=== PATIENT | female | born 2000 ===

== ENCOUNTER 2024-10-22 08:59 | Outpatient (AMB) | payer MEDICAID, SELFPAY ==
[2024-10-22 08:57] VITALS: BP 106/70; PULSE 80; RESP 18; TEMP 36.6; O2SAT 99
--- NOTE | 2024-10-22 08:57 | AMB.OBINITIA ---
Vital Signs 10/22/24 08:57 Height 1.57 m Height Method Stated Weight 74.503 kg Weight Measurement Method Standing Scale BMI 30.0 BP 106/70 Blood Pressure Source Automatic Cuff Blood Pressure Location Left Upper Arm Position Sitting Respiration 18 Pulse 80 Pulse Source Monitor Temp 97.8 F Temp Source Oral Pulse Oximetry (%) 99 Oxygen Delivery Method Room Air Allergies/Home Meds Allergies & Medications Allergies No Known Allergies Allergy (Verified 10/22/24 08:58) Medication Reconciliation ferrous sulfate 325 mg (65 mg iron) tablet 325 mg PO BID 10/16/23 [History Confirmed 10/22/24] folic acid 800 mcg tablet 1 mg PO DAILY 10/16/23 [History Confirmed 10/22/24] vit no.95-ferrous fumarate 28 mg-folic acid 800 mcg tablet () 1 tab PO DAILY 10/16/23 [History Confirmed 10/22/24] acetaminophen 500 mg capsule 500 mg PO QID PRN fever or pain #30 caps 10/20/23 [Rx Confirmed 10/22/24] ibuprofen 800 mg tablet 800 mg PO Q8H PRN pain #30 tabs 10/20/23 [Rx Confirmed 10/22/24] Intake Visit Data Collection New Patient or Established: New Patient not seen in past 3 years at [facility] (considered New) Seen by Clinical Staff ONLY (RN/MA): No Blend Technician Required: No Do You Feel Safe at Home: Yes Authorities Contacted: N/A PCP or OBGYN visit in last 3 months: Yes Hx Now: Yes Are you currently on any form of Control: No Last menstrual period: 04/10/24 Pain Present Currently: No Pain Scale Used: Escobar-Alcantara/Numerical Pain scale:: 0 Smoking Status Smoking Status: Never smoker Questionnaires Covid-19 Vaccine Questionnaire Has patient been vacinated for Covid-19 Have you been vacinated for Covid-19: Yes PHQ-9 PHQ-2 Over the last 2 weeks, how often have you been bothered by any of the following problems? 1. Little interest or pleasure in doing things: not at all 2. Feeling down, depressed, or hopeless: not at all Total score: 0 PHQ-9 3. Trouble falling or staying asleep, or sleeping too much: Not at all 4. Feeling tired or having little energy: Not at all 5. Poor appetite or overeating: Not at all 6. Feeling bad about yourself - or that you are a failure or have let yourself or your family down: Not at all 7. Trouble concentrating on things, such as reading the newspaper or watching television: Not at all 8. Moving or speaking so slowly that other people could have noticed? - Or the opposite - being so fidgety or restless that you have been moving around a lot more than usual: not at all 9. Thoughts that you would be better off or of hurting yourself in some way: Not at all Total score: 0 If you checked off any problems, how difficult have these problems made it for you to do your work, take care of things at home, or get along with other people?: not difficult at all Source: Developed by Drs. Von Swain, Johana Edmond, Darshan Garcia and colleagues, with an educational kota from [email or web address]. Depression screen completed yes Social History Living Situation History Marital Status: Lives With: Family Housing: Apartment Tobacco History Smoking Status: Never smoker Second Hand Smoke Exposure: No Alcohol History Alcohol Intake: Never Domestic Abuse History Do You Feel Safe at Home: Yes Past Medical History Past Medical History Have you ever been diagnosed with any of the following: Neurological Problems Seizures: No Cardiology Problems Congestive Heart Failure: No Respiratory Problems Chronic Obstructive Pulmonary Disease (COPD): No Stomache/Intestinal Problems Hepatitis: No Genital/Urinary Problems Renal Disease: No Reproductive Problems Endometriosis: No Genital Herpes: No Gonorrhea: No Pelvic Inflammatory Disease: No Previous Pregnancies: No Syphilis: No Uterine Prolapse: No Endocrine Problems Diabetes Mellitus Type 1: No Diabetes Mellitus Type 2: No Blood Problems Anemia: No Leukemia: No Hemophilia: No Thalassemia: No Sickle Cell Disease: No Clotting Problems: No Other Problems Hospitalization: Yes (breast reduction sx, pilonidal cyst sx.) Down Syndrome: No Developmental Delay: No Shingles: No Falls: No Blood Transfusions: No Blood Transfusion Reaction: No Anesthesia Reactions: No Organ Transplant: No Chemotherapy: No Radiation Therapy: No Hyperbaric Therapy: No MRSA: No VRSA: No Vancomycin-Resistant Enterococci: No Human Immunodeficiency Virus (HIV): No Chicken Pox: No Measles: No Mumps: No Rubella (Andorran Measles): No Pertussis: No Clostridium Difficile: No Cancer: No OB Initial Visit Menstrual History Menstrual reliability: definite Flow: normal Menstrual regularity: regular Monthly: Yes Age at menarche: 12 On control pills at conception: No Infection History & Risk Evaluation History of STDs: none HIV risk evaluation: low risk Hepatitis B risk evaluation: low risk Patient or partner has history of Genital Herpes: No Varicella/chicken pox status: immunized Genetic Screening & History Genetic Screening/Teratology Counseling - Includes patient, baby's father, or anyone in either family with: 1. Patient's age 35 years or older as of estimated date of delivery: No 2. Thalassemia (Occitan, Slovak, Mediterranean, or Background); MCV less than 80: No 3. Neural Tube Defect (Meningomyelocele, Spina Bifida, or Anencephaly): No 4. Congenital Heart Defect: No 5. Down Syndrome: No 6. Rolo-Sachs (Ashkenazi Hindu, Cajun, Rwandan Weston): No 7. Lo Disease (Ashkenazi Hindu): No 8. Familial Dysautonomia (Ashkenazi Hindu): No 9. Sickle Cell Disease or Trait (): No 10. Hemophilia or other blood disorders: No 11. Muscular Dystrophy: No 12. Cystic Fibrosis: No 13. Amalia's Chorea: No 14. Mental Retardation/Autism: No 15. Other inherited genetic or chromosomal disorder: No 16. Maternal Metabolic Disorder (EG,TYPE 1 Diabetes, PKU): No 17. Patient or baby's father had a child with defects not listed above: No 18. Recurrent loss or a stillbirth: No 19. Medications (including supplements, vitamins, herbs or otc drugs)/illicit/recreational drugs/alcohol since last menstrual period: No 20. Any other: No Comments/Counseling: PATIENT STATES HISTORY OF HEART MURMURS IN FAMILY Infection History 1. Live with someone with TB or exposed to TB: No 2. Rash or viral illness since last menstrual period: No 3. Hepatitis B,C: No Other (see comments) Source: [employer] Office Procedures OB Clinic LOC & Office Proc's Nursing/Assessment Patient Status: Initial/New Patient OB Clinic Nursing Assessment: BP Monitoring, Medication Reconciliation, Update PMH in EMR and Vital Signs OB Clinic Coordination of Care: Consent,records obtained, informed consent, Education Simp Pt/Fam, Lab and Imaging orders and Staff clarify orders Special Needs: Heart tones New Patient Charge New Patient Point Assignment: [id number] New Patient Point Charge: CHIEF RADIOLOGY Level 4 ([id number])
--- NOTE | 2024-10-22 09:30 | AMB.OBINITIA ---
Vital Signs 10/22/24 08:57 10/22/24 09:43 Height 1.57 m Height Method Stated Weight 74.503 kg Weight Measurement Method Standing Scale BMI 30.0 BP 106/70 106/70 Blood Pressure Source Automatic Cuff Blood Pressure Location Left Upper Arm Position Sitting Respiration 18 18 Pulse 80 80 Pulse Source Monitor Temp 97.8 F 97.8 F Temp Source Oral Pulse Oximetry (%) 99 99 Oxygen Delivery Method Room Air Allergies/Home Meds Allergies & Medications Allergies No Known Allergies Allergy (Verified 10/22/24 08:58) Medication Reconciliation ferrous sulfate 325 mg (65 mg iron) tablet 325 mg PO BID 10/16/23 [History Confirmed 10/22/24] folic acid 800 mcg tablet 1 mg PO DAILY 10/16/23 [History Confirmed 10/22/24] vit no.95-ferrous fumarate 28 mg-folic acid 800 mcg tablet () 1 tab PO DAILY 10/16/23 [History Confirmed 10/22/24] acetaminophen 500 mg capsule 500 mg PO QID PRN fever or pain #30 caps 10/20/23 [Rx Confirmed 10/22/24] ibuprofen 800 mg tablet 800 mg PO Q8H PRN pain #30 tabs 10/20/23 [Rx Confirmed 10/22/24] Intake Visit Data Collection New Patient or Established: Established Patient (seen at [facility] within 3 years) Reason for Visit:: initial OBI Seen by Clinical Staff ONLY (RN/MA): No Carver Hand Required: No Do You Feel Safe at Home: Yes Authorities Contacted: N/A PCP or OBGYN visit in last 3 months: Yes Hx Now: Yes Are you currently on any form of Control: No Pain Present Currently: Yes Pain Scale Used: Escobar-Alcantara/Numerical Pain scale:: 0 Smoking Status Smoking Status: Never smoker Questionnaires Covid-19 Vaccine Questionnaire Has patient been vacinated for Covid-19 Have you been vacinated for Covid-19: Yes PHQ-9 PHQ-2 Over the last 2 weeks, how often have you been bothered by any of the following problems? 1. Little interest or pleasure in doing things: not at all 2. Feeling down, depressed, or hopeless: not at all Total score: 0 PHQ-9 3. Trouble falling or staying asleep, or sleeping too much: Not at all 4. Feeling tired or having little energy: Not at all 5. Poor appetite or overeating: Not at all 6. Feeling bad about yourself - or that you are a failure or have let yourself or your family down: Not at all 7. Trouble concentrating on things, such as reading the newspaper or watching television: Not at all 8. Moving or speaking so slowly that other people could have noticed? - Or the opposite - being so fidgety or restless that you have been moving around a lot more than usual: not at all 9. Thoughts that you would be better off or of hurting yourself in some way: Not at all Total score: 0 If you checked off any problems, how difficult have these problems made it for you to do your work, take care of things at home, or get along with other people?: not difficult at all Source: Developed by Drs. Von Swain, Johana Edmond, Darshan Garcia and colleagues, with an educational kota from [employer]. Depression screen completed yes Social History Living Situation History Marital Status: Single Lives With: Family Housing: Apartment Tobacco History Smoking Status: Never smoker Second Hand Smoke Exposure: No Alcohol History Alcohol Intake: Never Domestic Abuse History Do You Feel Safe at Home: Yes Past Medical History Past Medical History Have you ever been diagnosed with any of the following: Neurological Problems Seizures: No Cardiology Problems Congestive Heart Failure: No Respiratory Problems Chronic Obstructive Pulmonary Disease (COPD): No Stomache/Intestinal Problems Hepatitis: No Genital/Urinary Problems Renal Disease: No Reproductive Problems Endometriosis: No Genital Herpes: No Gonorrhea: No Pelvic Inflammatory Disease: No Previous Pregnancies: No Syphilis: No Uterine Prolapse: No Endocrine Problems Diabetes Mellitus Type 1: No Diabetes Mellitus Type 2: No Blood Problems Anemia: No Leukemia: No Hemophilia: No Thalassemia: No Sickle Cell Disease: No Clotting Problems: No Other Problems Hospitalization: Yes (breast reduction sx, pilonidal cyst sx.) Down Syndrome: No Developmental Delay: No Shingles: No Falls: No Blood Transfusions: No Blood Transfusion Reaction: No Anesthesia Reactions: No Organ Transplant: No Chemotherapy: No Radiation Therapy: No Hyperbaric Therapy: No MRSA: No VRSA: No Vancomycin-Resistant Enterococci: No Human Immunodeficiency Virus (HIV): No Chicken Pox: No Measles: No Mumps: No Rubella (Kazakh Measles): No Pertussis: No Clostridium Difficile: No Cancer: No History of Present Illness HPI Narrative This is a 24-year-old 2 para 1 who comes today for her first OB visit at this site. Patient has been followed at [facility] up until now for care. Her first visit was at 10 weeks. Her last. Was April 10, 2024. And this gives a due date of January 15, 2025. Patient's care so far has been uneventful. She had her first NT scan at 13 weeks. Ultrasound was significant for a VSD and a cardiac ring on the fetus. Patient had been referred to Dr. Carvajal after her anatomy a scan for care. echo and Dopplers showed stable heart rate. Patient's labs were as follows patient is A+, antibody screen negative, RPR nonreactive, rubella immune, hepatitis B negative, hep C negative, HIV negative,. GC and Chlamydia were negative. Patient had a negative Pap. Patient's NIPT and carrier screens were negative. And patient's 1 hour glucose was 79. A1c normal. And baseline cholestasis labs were normal. Patient reports movement and denies any signs of labor OB Initial Visit Menstrual History Menstrual reliability: definite Flow: normal Menstrual regularity: regular Monthly: Yes Age at menarche: 12 On control pills at conception: No OB History : 1 Para: 0 Hx # Pregnancies: 0 Hx Total # of Abortions (Spontaneous & Elective): 0 # of Living Children: 0 Infection History & Risk Evaluation History of STDs: none HIV risk evaluation: low risk Hepatitis B risk evaluation: low risk Patient or partner has history of Genital Herpes: No Varicella/chicken pox status: immunized Genetic Screening & History Genetic Screening/Teratology Counseling - Includes patient, baby's father, or anyone in either family with: 1. Patient's age 35 years or older as of estimated date of delivery: No 2. Thalassemia (Rwandan, Maori, Mediterranean, or Background); MCV less than 80: No 3. Neural Tube Defect (Meningomyelocele, Spina Bifida, or Anencephaly): No 4. Congenital Heart Defect: No 5. Down Syndrome: No 6. Rolo-Sachs (Ashkenazi Evangelical, Cajun, Japanese Aubrey): No 7. Lo Disease (Ashkenazi Evangelical): No 8. Familial Dysautonomia (Ashkenazi Evangelical): No 9. Sickle Cell Disease or Trait (): No 10. Hemophilia or other blood disorders: No 11. Muscular Dystrophy: No 12. Cystic Fibrosis: No 13. Lea's Chorea: No 14. Mental Retardation/Autism: No 15. Other inherited genetic or chromosomal disorder: No 16. Maternal Metabolic Disorder (EG,TYPE 1 Diabetes, PKU): No 17. Patient or baby's father had a child with defects not listed above: No 18. Recurrent loss or a stillbirth: No 19. Medications (including supplements, vitamins, herbs or otc drugs)/illicit/recreational drugs/alcohol since last menstrual period: No 20. Any other: No Infection History 1. Live with someone with TB or exposed to TB: No 2. Rash or viral illness since last menstrual period: No 3. Hepatitis B,C: No Other (see comments) Source: [employer] Review of Systems Review of Systems Systems Reviewed: All systems reviewed, normal except as documented Exam General Limitations: no limitations General Appearance: alert, in no apparent distress, comfortable, cooperative, healthy appearing, well developed and well groomed Head Head exam: atraumatic, normocephalic and normal inspection Chest Chest inspection: Present normal inspection and symmetric chest wall rise Abdominal Abdominal exam: Present soft and normal bowel sounds Psych Psychiatric exam: Present normal affect and normal mood Assessment & Plan Diagnosis / Problem List (1) : Status: Acute (2) High risk case management patient in third trimester: Status: Acute Plan Tdap next visit. Discussed third trimester labs with patient. Patient to continue care for time being with Dr. Carvajal. Patient's next ultrasound and appointment with Dr. Carvajal is seeing November 06. Discussed labor precautions increase fluids continue vitamins walk daily. Return in 3 weeks next visit Office Procedures OB Clinic LOC & Office Proc's Nursing/Assessment Patient Status: Initial/New Patient OB Clinic Nursing Assessment: BP Monitoring, Medication Reconciliation, Update PMH in EMR and Vital Signs OB Clinic Coordination of Care: Consent,records obtained, informed consent, Education Simp Pt/Fam, Lab and Imaging orders and Staff clarify orders Special Needs: Heart tones New Patient Charge New Patient Point Assignment: [id number] New Patient Point Charge: COPPER ETCHER Level 4 ([id number])
[2024-10-22 09:43] VITALS: BP 106/70; PULSE 80; RESP 18; TEMP 36.6; O2SAT 99
== END 2024-10-22 09:19 | disposition home or self-care (01) ==
LOC: HODSOBC 08:59
PROVIDERS: Supervising Provider Advanced Practice Midwife; Visit Provider Advanced Practice Midwife
DX: O09.93 Supervision of high risk pregnancy, unspecified, third trimester (principal); Z3A.00 Weeks of gestation of pregnancy not specified
CPT/HCPCS: 99204; G0463

== ENCOUNTER 2024-11-12 15:23 | Outpatient (AMB) | payer MEDICAID, SELFPAY ==
--- NOTE | 2024-11-12 15:36 | AMB.OBVISIT ---
Vital Signs 11/12/24 15:37 Height 1.57 m Height Method Stated Weight 76.714 kg Weight Measurement Method Standing Scale BMI 31.1 BP 117/75 Blood Pressure Source Automatic Cuff Blood Pressure Location Left Upper Arm Position Sitting Respiration 18 Pulse 92 Pulse Source Monitor Temp 97.2 F Temp Source Oral Pulse Oximetry (%) 99 Oxygen Delivery Method Room Air Allergies/Home Meds Allergies & Medications Allergies No Known Allergies Allergy (Verified 11/12/24 15:38) Medication Reconciliation ferrous sulfate 325 mg (65 mg iron) tablet 325 mg PO BID 10/16/23 [History Confirmed 11/12/24] folic acid 800 mcg tablet 1 mg PO DAILY 10/16/23 [History Confirmed 11/12/24] vit no.95-ferrous fumarate 28 mg-folic acid 800 mcg tablet () 1 tab PO DAILY 10/16/23 [History Confirmed 11/12/24] acetaminophen 500 mg capsule 500 mg PO QID PRN fever or pain #30 caps 10/20/23 [Rx Confirmed 11/12/24] ibuprofen 800 mg tablet 800 mg PO Q8H PRN pain #30 tabs 10/20/23 [Rx Confirmed 11/12/24] Intake Visit Data Collection New Patient or Established: Established Patient (seen at [facility] within 3 years) Reason for Visit:: obc Seen by Clinical Staff ONLY (RN/MA): No Platform Stapler Required: No Do You Feel Safe at Home: Yes Authorities Contacted: N/A PCP or OBGYN visit in last 3 months: Yes Date of Last PCP or OBGYN visit: 10/22/24 Hx Now: Yes Are you currently on any form of Control: No Pain Present Currently: No Pain Scale Used: Escobar-Alcantara/Numerical Pain scale:: 0 Smoking Status Smoking Status: Never smoker Questionnaires Covid-19 Vaccine Questionnaire Has patient been vacinated for Covid-19 Have you been vacinated for Covid-19: Yes PHQ-9 PHQ-2 Over the last 2 weeks, how often have you been bothered by any of the following problems? 1. Little interest or pleasure in doing things: not at all 2. Feeling down, depressed, or hopeless: not at all Total score: 0 PHQ-9 3. Trouble falling or staying asleep, or sleeping too much: Not at all 4. Feeling tired or having little energy: Not at all 5. Poor appetite or overeating: Not at all 6. Feeling bad about yourself - or that you are a failure or have let yourself or your family down: Not at all 7. Trouble concentrating on things, such as reading the newspaper or watching television: Not at all 8. Moving or speaking so slowly that other people could have noticed? - Or the opposite - being so fidgety or restless that you have been moving around a lot more than usual: not at all 9. Thoughts that you would be better off or of hurting yourself in some way: Not at all Total score: 0 If you checked off any problems, how difficult have these problems made it for you to do your work, take care of things at home, or get along with other people?: not difficult at all Source: Developed by Drs. Von Swain, Johana Edmond, Darshan Garcia and colleagues, with an educational kota from [email or web address]. Depression screen completed yes Social History Living Situation History Lives With: Family Housing: Apartment Tobacco History Smoking Status: Never smoker Second Hand Smoke Exposure: No Alcohol History Alcohol Intake: Never Domestic Abuse History Do You Feel Safe at Home: Yes Past Medical History Past Medical History Have you ever been diagnosed with any of the following: Neurological Problems Seizures: No Cardiology Problems Congestive Heart Failure: No Respiratory Problems Chronic Obstructive Pulmonary Disease (COPD): No Stomache/Intestinal Problems Hepatitis: No Genital/Urinary Problems Renal Disease: No Reproductive Problems Endometriosis: No Genital Herpes: No Gonorrhea: No Pelvic Inflammatory Disease: No Previous Pregnancies: No Syphilis: No Uterine Prolapse: No Endocrine Problems Diabetes Mellitus Type 1: No Diabetes Mellitus Type 2: No Blood Problems Anemia: No Leukemia: No Hemophilia: No Thalassemia: No Sickle Cell Disease: No Clotting Problems: No Other Problems Hospitalization: Yes (breast reduction sx, pilonidal cyst sx.) Down Syndrome: No Developmental Delay: No Shingles: No Falls: No Blood Transfusions: No Blood Transfusion Reaction: No Anesthesia Reactions: No Organ Transplant: No Chemotherapy: No Radiation Therapy: No Hyperbaric Therapy: No MRSA: No VRSA: No Vancomycin-Resistant Enterococci: No Human Immunodeficiency Virus (HIV): No Chicken Pox: No Measles: No Mumps: No Rubella (Bahraini Measles): No Pertussis: No Clostridium Difficile: No Cancer: No Visit OB Visit Log OB Flowsheet Initial Weight: Not Recorded Date <del>?</del> EGA Weight Edema CTX Effacement BP Fundal ht Pres Dilation Effacement Station Visit Note Alb Glu FHR Mov 10/22/24 <del>?</del> 27w 5d 74.503 kg absent absent 106/70 106/70 28 discussed labs. next visit with perinate 11/06, discuss precaution. continue PNV, fluids. TDAP NV, f/u in 3 week 151 active 11/12/24 <del>?</del> 30w 5d 76.714 kg absent absent 117/75 no complaints of PTL. reports good mvement. no leaking or bleeding. last visit with Dr Carvajal was 11/06. patient reports that MFM saw small amount of fluid around heart. next BPP with MFM 11/20, NST/GLO 11/26, per mfm start weekly nst/bpp. patient desire to have NST/BPP at [facility] due to distance. nst/bpp referal made no complaints of PTL. reports good mvement. no leaking or bleeding. last visit with Dr Carvajal was 11/06. patient reports that MFM saw small amount of fluid around heart. next BPP with MFM 11/20, NST/GLO 11/26, per mfm start weekly nst/bpp. patient desire to have NST/BPP at [facility] due to distance. nst/bpp referal made. declined TDAP. rtc obc 2 week 156 active HANG Calculator Estimated Delivery Date Method Current WG Current Estimate 01/16/25 Ultrasound #1 30w 5d Other Estimates 01/15/25 LMP (Certain) 30w 6d Assessment & Plan Diagnosis / Problem List (1) High risk case management patient in third trimester: Status: Acute Plan Begin weekly NST BPP x 16 visits. Continue vitamins. Continue follow-up with Dr. Carvajal. Patient to keep her coming up appointments November 30 November 26. I offered Tdap the patient she declined. Discussed labor precautions with patient. I will call Dr. Carvajal's office for her previous ultrasound results. Return in 2 weeks OB check Additional Plan Follow Up: 2 Weeks (obc) Office Procedures OB Clinic LOC & Office Proc's Nursing/Assessment Patient Status: Established Patient OB Clinic Nursing Assessment: BP Monitoring, Medication Reconciliation, Update PMH in EMR and Vital Signs OB Clinic Coordination of Care: Consent,records obtained, informed consent, Education Simp Pt/Fam and Staff clarify orders Special Needs: Heart tones Established Patient Charge Established Patient Point Assignment: 105 Established Patient Point Charge: EP Level 3 (80-115)
[2024-11-12 15:37] VITALS: BP 117/75; PULSE 92; RESP 18; TEMP 36.2; O2SAT 99; BMI 31.1
--- NOTE | 2024-11-13 09:48 | OBCLNT_ITS ---
Vital Signs 11/12/24 15:37 11/13/24 09:49 Height 1.57 m Height Method Stated Weight 76.714 kg Weight Measurement Method Standing Scale BMI 31.1 BP 117/75 117/75 Blood Pressure Source Automatic Cuff Blood Pressure Location Left Upper Arm Position Sitting Respiration 18 18 Pulse 92 92 Pulse Source Monitor Temp 97.2 F 97.2 F Temp Source Oral Pulse Oximetry (%) 99 99 Oxygen Delivery Method Room Air Allergies/Home Meds Allergies & Medications Allergies No Known Allergies Allergy (Verified 11/12/24 15:38) Medication Reconciliation ferrous sulfate 325 mg (65 mg iron) tablet 325 mg PO BID 10/16/23 [History Confirmed 11/12/24] folic acid 800 mcg tablet 1 mg PO DAILY 10/16/23 [History Confirmed 11/12/24] vit no.95-ferrous fumarate 28 mg-folic acid 800 mcg tablet () 1 tab PO DAILY 10/16/23 [History Confirmed 11/12/24] acetaminophen 500 mg capsule 500 mg PO QID PRN fever or pain #30 caps 10/20/23 [Rx Confirmed 11/12/24] ibuprofen 800 mg tablet 800 mg PO Q8H PRN pain #30 tabs 10/20/23 [Rx Confirmed 11/12/24] Intake Visit Data Collection New Patient or Established: Established Patient (seen at [facility] within 3 years) Reason for Visit:: obc Do You Feel Safe at Home: Yes Authorities Contacted: N/A PCP or OBGYN visit in last 3 months: Yes Smoking Status Smoking Status: Never smoker Questionnaires PHQ-9 PHQ-2 Over the last 2 weeks, how often have you been bothered by any of the following problems? 1. Little interest or pleasure in doing things: not at all PHQ-9 8. Moving or speaking so slowly that other people could have noticed? - Or the opposite - being so fidgety or restless that you have been moving around a lot more than usual: not at all Total score: 0 Source: Developed by Drs. Von Swain, Johana Edmond, Darshan Garcia and colleagues, with an educational kota from [employer]. Social History Living Situation History Lives With: Family Housing: Apartment Tobacco History Smoking Status: Never smoker Second Hand Smoke Exposure: No Alcohol History Alcohol Intake: Never Domestic Abuse History Do You Feel Safe at Home: Yes Past Medical History Past Medical History Have you ever been diagnosed with any of the following: Neurological Problems Seizures: No Cardiology Problems Congestive Heart Failure: No Respiratory Problems Chronic Obstructive Pulmonary Disease (COPD): No Stomache/Intestinal Problems Hepatitis: No Genital/Urinary Problems Renal Disease: No Reproductive Problems Endometriosis: No Genital Herpes: No Gonorrhea: No Pelvic Inflammatory Disease: No Previous Pregnancies: No Syphilis: No Uterine Prolapse: No Endocrine Problems Diabetes Mellitus Type 1: No Diabetes Mellitus Type 2: No Blood Problems Anemia: No Leukemia: No Hemophilia: No Thalassemia: No Sickle Cell Disease: No Clotting Problems: No Other Problems Hospitalization: Yes (breast reduction sx, pilonidal cyst sx.) Down Syndrome: No Developmental Delay: No Shingles: No Falls: No Blood Transfusions: No Blood Transfusion Reaction: No Anesthesia Reactions: No Organ Transplant: No Chemotherapy: No Radiation Therapy: No Hyperbaric Therapy: No MRSA: No VRSA: No Vancomycin-Resistant Enterococci: No Human Immunodeficiency Virus (HIV): No Chicken Pox: No Measles: No Mumps: No Rubella (Chinese Measles): No Pertussis: No Clostridium Difficile: No Cancer: No Visit OB Visit Log OB Flowsheet Initial Weight: Not Recorded Date -?-?-?-?-?-?-?-?-?-?-?-?- EGA Weight Edema CTX Effacement BP Fundal ht Pres Dilation Effacement Station Visit Note Alb Glu FHR Mov 10/22/24 -?--?-?-?-?-?-?-?-?-?-?-?- 27w 5d 74.503 kg absent absent 106/70 106/70 28 discussed labs. next visit with perinate 11/06, discuss precaution. continue PNV, fluids. TDAP NV, f/u in 3 week 151 active 11/12/24 -?-?-?-?-?-?-?-?-?-?-?-?- 30w 5d 76.714 kg absent absent 117/75 117/75 30 no compla ints of PTL. reports good mvement. no leaking or bleeding. last visit with Dr Carvajal was 11/06. patient reports that MFM saw small amount of fluid around heart. next BPP with MFM 11/20, NST/GLO 11/26, per mfm start weekly nst/bpp. patient desire to have NST/BPP at [facility] due to distance. nst/bpp referal made no complaints of PTL. report s good mvement. no leaking or bleeding. last visit with Dr Carvajal was 11/06. patient reports that MFM saw small amount of fluid around heart. next BPP with MFM 5/7, NST/GLO 11/26, per mfm start weekly nst/bpp. patient desire to have NST/BPP at [facility] due to distance. nst/bpp referal made. declined TDAP. rtc obc 2 week 15 6 active HANG Calculator Estimated Delivery Date Method Current WG Current Estimate 01/16/25 Ultrasound #1 30w 6d Other Estimates 01/15/25 LMP (Certain) 31w 0d Assessment & Plan Diagnosis / Problem List (1) High risk case management patient in third trimester: Status: Acute Plan initiate weekly NST/BPP, keep nst with MFM 5/7 and BPP in 2 week. PTL precaution, fkc bid, discuss diet and weight, PTL precaution. declined TDAP today. rtc 2 week OBC Additional Plan Follow Up: 2 Weeks (obc) Office Procedures OB Clinic LOC & Office Proc's Nursing/Assessment Patient Status: Established Patient OB Clinic Nursing Assessment: BP Monitoring, Medication Reconciliation, Update PMH in EMR and Vital Signs OB Clinic Coordination of Care: Consent,records obtained, informed consent, Education Simp Pt/Fam and Staff clarify orders Special Needs: Heart tones Established Patient Charge Established Patient Point Assignment: 105 Established Patient Point Charge: EP Level 3 (80-115)
[2024-11-13 09:49] VITALS: BP 117/75; PULSE 92; RESP 18; TEMP 36.2; O2SAT 99
== END 2024-11-12 16:02 | disposition home or self-care (01) ==
LOC: HODSOBC 15:23
PROVIDERS: Supervising Provider Advanced Practice Midwife; Visit Provider Advanced Practice Midwife
DX: O09.93 Supervision of high risk pregnancy, unspecified, third trimester (principal); Z3A.30 30 weeks gestation of pregnancy
CPT/HCPCS: 99213; G0463

== ENCOUNTER 2024-11-26 08:30 | Outpatient (AMB) | payer MEDICAID, SELFPAY ==
--- NOTE | 2024-11-26 10:02 | OBCLNT_ITS ---
Vital Signs 11/26/24 10:06 Height 1.57 m Height Method Stated Weight 76.374 kg Weight Measurement Method Standing Scale BMI 30.9 BP 110/67 Blood Pressure Source Automatic Cuff Blood Pressure Location Left Upper Arm Position Sitting Respiration 18 Pulse 87 Pulse Source Monitor Temp 96.8 F Temp Source Oral Pulse Oximetry (%) 98 Oxygen Delivery Method Room Air Allergies/Home Meds Allergies & Medications Allergies No Known Allergies Allergy (Verified 11/26/24 10:07) Medication Reconciliation ferrous sulfate 325 mg (65 mg iron) tablet 325 mg PO BID 10/16/23 [History Confirmed 11/26/24] folic acid 800 mcg tablet 1 mg PO DAILY 10/16/23 [History Confirmed 11/26/24] vit no.95-ferrous fumarate 28 mg-folic acid 800 mcg tablet () 1 tab PO DAILY 10/16/23 [History Confirmed 11/26/24] acetaminophen 500 mg capsule 500 mg PO QID PRN fever or pain #30 caps 10/20/23 [Rx Confirmed 11/26/24] ibuprofen 800 mg tablet 800 mg PO Q8H PRN pain #30 tabs 10/20/23 [Rx Confirmed 11/26/24] Intake Visit Data Collection New Patient or Established: Established Patient (seen at [facility] within 3 years) Reason for Visit:: obc Seen by Clinical Staff ONLY (RN/MA): No Bulb Planter Required: No Do You Feel Safe at Home: Yes Authorities Contacted: N/A PCP or OBGYN visit in last 3 months: Yes Date of Last PCP or OBGYN visit: 11/13/24 Hx Now: Yes Are you currently on any form of Control: No Pain Present Currently: No Pain Scale Used: Escobar-Alcantara/Numerical Pain scale:: 0 Smoking Status Smoking Status: Never smoker Questionnaires Covid-19 Vaccine Questionnaire Has patient been vacinated for Covid-19 Have you been vacinated for Covid-19: Yes PHQ-9 PHQ-2 Over the last 2 weeks, how often have you been bothered by any of the following problems? 1. Little interest or pleasure in doing things: not at all 2. Feeling down, depressed, or hopeless: not at all Total score: 0 PHQ-9 3. Trouble falling or staying asleep, or sleeping too much: Not at all 4. Feeling tired or having little energy: Not at all 5. Poor appetite or overeating: Not at all 6. Feeling bad about yourself - or that you are a failure or have let yourself or your family down: Not at all 7. Trouble concentrating on things, such as reading the newspaper or watching television: Not at all 8. Moving or speaking so slowly that other people could have noticed? - Or the opposite - being so fidgety or restless that you have been moving around a lot more than usual: not at all 9. Thoughts that you would be better off or of hurting yourself in some way: Not at all Total score: 0 If you checked off any problems, how difficult have these problems made it for you to do your work, take care of things at home, or get along with other people?: not difficult at all Source: Developed by Drs. Von Swain, Johana Edmond, Darshan Garcia and colleagues, with an educational kota from [employer]. Depression screen completed yes Social History Living Situation History Lives With: Family Housing: Apartment Tobacco History Smoking Status: Never smoker Second Hand Smoke Exposure: No Alcohol History Alcohol Intake: Never Domestic Abuse History Do You Feel Safe at Home: Yes ANGULAR JS DEVELOPER: Past Medical History Past Medical History: No Hx Neurological Disorders, No Hx Cardiac Disorders, No Hx Cancer, No Hx Blood Disorders, No Hx Anemia, No Hx Gastrointestinal Disorders, No Hx Renal Disease, No Hx Diabetes Mellitus Type 1 and No Hx Diabetes Mellitus Type 2 Care OB Visit Log OB Flowsheet Initial Weight: Not Recorded Date -?-?-?-?-?-?-?-?-?-?-?-?- EGA Weight Edema CTX Effacement BP Fundal ht Pres Dilation Effacement Station Visit Note Alb Glu FHR Mov 10/22/24 -?-?-?-?-?-?-?-?-?-?-?-?- 27w 5d 74.503 kg absent absent 106/70 106/70 28 discussed labs. next visit with perinate 11/06, discuss precaution. continue PNV, fluids. TDAP NV, f/u in 3 week 151 active 11/12/24 -?-?-?-?-?-?-?-?-?-?-?-?- 30w 5d 76.714 kg absent absent 117/75 117/75 30 no compla ints of PTL. reports good mvement. no leaking or bleeding. last visit with Dr Carvajal was 11/06. patient reports that MFM saw small amount of fluid around heart. next BPP with MFM 11/20, NST/GLO 11/26, per mfm start weekly nst/bpp. patient desire to have NST/BPP at [facility] due to distance. nst/bpp referal made no complaints of PTL. report s good mvement. no leaking or bleeding. last visit with Dr Carvajal was 11/06. patient reports that MFM saw small amount of fluid around heart. next BPP with MFM 11/20, NST/GLO 11/26, per mfm start weekly nst/bpp. patient desire to have NST/BPP at [facility] due to distance. nst/bpp referal made. declined TDAP. rtc obc 2 week 15 6 active 11/26/24 -?-?-?-?-?-?-?-?-?-?-?-?- 32w 5d 76.374 kg absent absent 110/67 31 f/u with perinate and NST/BPP today, patient transfered to Dr Carvajal for care. fetus with cardiac murmur and fluid aroud heart, improved to 3. good fm,no c/o PTL cymptoms. biweek nst/bpp sched. discuss ptl precaution, fkc bid. increase fluid,continue PNV. continue sched visits with perinatology 145 active HANG Calculator Estimated Delivery Date Method Current WG Current Estimate 01/16/25 Ultrasound #1 32w 5d Other Estimates 01/15/25 LMP (Certain) 32w 6d Comments: 24 yo , cardiac ring. sees Dr Carvajal. A+,abs-,rpr;;nr, rub imm, hbsag-,hiv-,hc-, GC/CT-, 1 hr gttwnl, lmp 04/10. EDC: 01/15 Office Procedures OB Clinic LOC & Office Proc's Nursing/Assessment Patient Status: Established Patient OB Clinic Nursing Assessment: Medication Reconciliation, Update PMH in EMR and Vital Signs OB Clinic Coordination of Care: Consent,records obtained, informed consent, Education Simp Pt/Fam, Results/Orders obtained and Staff clarify orders Special Needs: Heart tones Established Patient Charge Established Patient Point Assignment: 95 Established Patient Point Charge: EP Level 3 (80-115) Assessment & Plan Diagnosis / Problem List (1) High risk case management patient in third trimester: Status: Acute Plan continue care with Dr Carvajal. continue bi-week NST/BPP, FKC BID. ptl precaution reviewed. continue PNV. rtc for 4 week pp visit Additional Plan Follow Up: 2 Weeks (obc)
[2024-11-26 10:06] VITALS: BP 110/67; PULSE 87; RESP 18; TEMP 36; O2SAT 98; BMI 30.9
== END 2024-11-26 11:00 | disposition home or self-care (01) ==
LOC: HODSOBC 08:30
PROVIDERS: PCP Advanced Practice Midwife; Referring Provider Advanced Practice Midwife; Supervising Provider Advanced Practice Midwife; Visit Provider Advanced Practice Midwife
DX: O09.93 Supervision of high risk pregnancy, unspecified, third trimester (principal); Z3A.32 32 weeks gestation of pregnancy
CPT/HCPCS: 99213; G0463

== ENCOUNTER 2025-01-29 13:28 | Outpatient (AMB) | payer MEDICAID, SELFPAY ==
[2025-01-29 13:37] VITALS: BP 122/71; PULSE 70; RESP 16; TEMP 36.6; O2SAT 98; BMI 28.5
--- NOTE | 2025-01-29 13:37 | AMB.OBPP ---
Vital Signs 01/29/25 13:37 Height 1.57 m Height Method Stated Weight 70.931 kg Weight Measurement Method Standing Scale BMI 28.5 BP 122/71 Blood Pressure Source Automatic Cuff Blood Pressure Location Left Upper Arm Position Sitting Respiration 16 Pulse 70 Pulse Source Monitor Temp 97.8 F Temp Source Oral Pulse Oximetry (%) 98 Oxygen Delivery Method Room Air Allergies/Home Meds Allergies & Medications Allergies No Known Allergies Allergy (Verified 01/29/25 13:42) Medication Reconciliation ferrous sulfate 325 mg (65 mg iron) tablet 325 mg PO BID 10/16/23 [History Confirmed 01/29/25] folic acid 800 mcg tablet 1 mg PO DAILY 10/16/23 [History Confirmed 01/29/25] vit no.95-ferrous fumarate 28 mg-folic acid 800 mcg tablet () 1 tab PO DAILY 10/16/23 [History Confirmed 01/29/25] acetaminophen 500 mg capsule 500 mg PO QID PRN fever or pain #30 caps 10/20/23 [Rx Confirmed 01/29/25] ibuprofen 800 mg tablet 800 mg PO Q8H PRN pain #30 tabs 10/20/23 [Rx Confirmed 01/29/25] Intake Visit Data Collection New Patient or Established: Established Patient (seen at [facility] within 3 years) Reason for Visit:: Seen by Clinical Staff ONLY (RN/MA): No Hog Tender Required: No Do You Feel Safe at Home: Yes Authorities Contacted: N/A PCP or OBGYN visit in last 3 months: Yes Hx Now: Yes Are you currently on any form of Control: No Pain Present Currently: No Pain Scale Used: Escobar-Alcantara/Numerical Pain scale:: 0 Smoking Status 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 Past Medical History: No Hx Neurological Disorders, No Hx Cardiac Disorders, No Hx Cancer, No Hx Blood Disorders, No Hx Anemia, No Hx Gastrointestinal Disorders, No Hx Renal Disease, No Hx Diabetes Mellitus Type 1 and No Hx Diabetes Mellitus Type 2 Questionnaires Covid-19 Vaccine Questionnaire Has patient been vacinated for Covid-19 Have you been vacinated for Covid-19: Yes Social History Living Situation History Lives With: Family Housing: Apartment Tobacco History Smoking Status: Never smoker Second Hand Smoke Exposure: No Alcohol History Alcohol Intake: Never Domestic Abuse History Do You Feel Safe at Home: Yes EPDS - PP Depression Screening [place] Pospartum Depression Screen I have been able to laugh and see the funny side of things: (0) As much as I always could I have looked forward with enjoyment to things: (0) As much as I ever did I have blamed myself unnecessarily when things went wrong: (0) No, never I have been anxious or worried for no good reason: (0) No, not at all I have felt scared or panicky for no very good reason: (0) No, not at all Things have been getting on top of me: (0) No, I have been coping as well as ever I have been so unhappy that I have had difficulty sleeping: (0) No, not at all I have felt sad or miserable: (0) No, not at all I have been so unhappy that I have been crying: (0) No, never The thought of harming myself has occurred to me: (0) Never Total Score: EPDS Score: Referral is indicated for score of 9 or more, suicidal, or if provider believes patient is depressed regardless of score.: 0 EPDS completed yes Care OB Visit Log OB Flowsheet Initial Weight: Not Recorded Date <del>?</del> EGA Weight BP Alb Glu CTX Pres Fundal ht FHR Mov Dilation Station Effacement Hx Notes Visit Note 10/22/24 <del>?</del> 27w 5d 74.503 kg 106/70 106/70 absent 28 151 active discussed labs. next visit with perinate 11/06, discuss precaution. continue PNV, fluids. TDAP NV, f/u in 3 week 11/12/24 <del>?</del> 30w 5d 76.714 kg 117/75 117/75 absent 30 156 active no complaints of PTL. reports good mvement. no leaking or bleeding. last visit with Dr Carvajal was 11/06. patient reports that MFM saw small amount of fluid around heart. next BPP with MFM 11/20, NST/GLO 11/26, per mfm start weekly nst/bpp. patient desire to have NST/BPP at [facility] due to distance. nst/bpp referal made no complaints of PTL. reports good mvement. no leaking or bleeding. last visit with Dr Carvajal was 11/06. patient reports that MFM saw small amount of fluid around heart. next BPP with MFM 11/20, NST/GLO 11/26, per mfm start weekly nst/bpp. patient desire to have NST/BPP at [facility] due to distance. nst/bpp referal made. declined TDAP. rtc obc 2 week 11/26/24 <del>?</del> 32w 5d 76.374 kg 110/67 absent 31 145 active f/u with perinate and NST/BPP today, patient transfered to Dr Carvajal for care. fetus with cardiac murmur and fluid aroud heart, improved to 3. good fm,no c/o PTL cymptoms. biweek nst/bpp sched. discuss ptl precaution, fkc bid. increase fluid,continue PNV. continue sched visits with perinatology HANG Calculator Estimated Delivery Date Method Current WG Current Estimate 01/16/25 Ultrasound #1 41w 6d Other Estimates 01/15/25 LMP (Certain) 42w 0d HPI Interval History: 24-year-old 2 para 2 for 2-week . Patient had a vaginal delivery 01/08/[address] [facility]. Patient was delivering in [place] because baby was diagnosed with a congenital anomaly. Patient delivered spontaneously at 39 weeks. She says the baby is doing well at home and has pending appointment with the [place] magistrate. Baby weighed 6 pounds 12. Patient is bottlefeeding. She reports sibling is adjusting. She has good help at home and the father the baby is involved. Patient has no complaints. And she is unsure about control. But she thinks she might use a Depo shot patient is not sexually active Was or delivery considered high risk: No Delivery type: vaginal Was labor induced: no Gestational age at delivery (weeks): 39 Delivery date: 01/08/25 Delivering provider: [facility] Delivery complications: No Is patient infant: No Is patient sexually active: No Contraception planned: unsure Review of Systems Review of Systems ROS limited to current INSURANCE EXECUTIVE complaints: Yes Exam Narrative Physical exam: euthyroid, both breast soft, non tender, no masses, no mastitis, abdomen soft, non tender, no masses, uterus below umbilicus. perineum intact,no swelling, neg homans, 2+ dtr General Limitations: no limitations General Appearance: alert, in no apparent distress, comfortable, cooperative, healthy appearing, well developed and well groomed Head Head exam: atraumatic, normocephalic and normal inspection Neck Neck exam: Present normal inspection, full ROM and trachea midline Chest Chest inspection: Present normal inspection and symmetric chest wall rise Resp Respiratory exam: Present normal lung sounds bilaterally Card Cardiovascular exam: Present regular rate, normal rhythm and normal heart sounds Abdominal Abdominal exam: Present soft and normal bowel sounds Psych Psychiatric exam: Present normal affect and normal mood Office Procedures OB Clinic LOC & Office Proc's Nursing/Assessment Patient Status: Established Patient OB Clinic Nursing Assessment: Medication Reconciliation, Update PMH in EMR and Vital Signs OB Clinic Coordination of Care: Complex Care and Chronic Disease 1-5, Consent,records obtained, informed consent, Education Simp Pt/Fam, Lab and Imaging orders, Results/Orders obtained and Staff clarify orders Established Patient Charge Established Patient Point Assignment: 105 Post Follow-up Visit Post Follow up Visit: Yes Assessment & Plan Diagnosis / Problem List (1) Routine Follow-Up: Plan: Continue vitamins. Increase fluids. Discussed diet and rest and activity. I discussed control options with patient. She is unsure no sex. Return in 3 weeks visit and (2) 2 weeks follow-up: Status: Acute Care Reviewed delivery summary and any complications: Yes Uterus involuted to: 3 below umb Perineal / incision healing noted: Yes Screened for depression: Yes Depression counseling provided: No Discussed family planning & contraception: Yes Contraception planned: unsure Counseling on safe resumption of sexual activity: Yes Counseling on gradual excercise: Yes Discussed and concerns (describe), provided support: No Referred to medical education specialist: No Counseled on good nutrition, hydration, and self care: Yes Reviewed vaccine status: No Chronic & current problems reconciled on problem list: Yes Infant care discussed; questions answered: feeding Follow up: routine/prn Additional counseling & anticipatory guidance provided: rtc 6 week pp visit and contraception, discussed contraception option (FP) Tobacco Smoking Status: Never smoker
== END 2025-01-29 14:03 | disposition home or self-care (01) ==
LOC: HODSOBC 13:28
PROVIDERS: PCP Advanced Practice Midwife; Referring Provider Advanced Practice Midwife; Supervising Provider Advanced Practice Midwife; Visit Provider Advanced Practice Midwife
DX: Z39.2 Encounter for routine postpartum follow-up (principal)

== ENCOUNTER 2025-02-19 09:59 | Outpatient (AMB) | payer MEDICAID, SELFPAY ==
[2025-02-19 10:09] VITALS: BP 120/80; PULSE 72; RESP 17; TEMP 36.3; O2SAT 99; BMI 28.8
--- NOTE | 2025-02-19 10:09 | AMB.OBPP ---
Vital Signs 02/19/25 10:09 Height 1.57 m Height Method Measured Weight 70.931 kg Weight Measurement Method Standing Scale BMI 28.8 BP 120/80 Blood Pressure Source Automatic Cuff Blood Pressure Location Right Upper Arm Position Sitting Respiration 17 Pulse 72 Pulse Source Monitor Temp 97.4 F Temp Source Temporal Artery Scan Pulse Oximetry (%) 99 Oxygen Delivery Method Room Air Allergies/Home Meds Allergies & Medications Allergies No Known Allergies Allergy (Verified 02/19/25 10:10) Medication Reconciliation ferrous sulfate 325 mg (65 mg iron) tablet 325 mg PO BID 10/16/23 [History Confirmed 02/19/25] folic acid 800 mcg tablet 1 mg PO DAILY 10/16/23 [History Confirmed 02/19/25] vit no.95-ferrous fumarate 28 mg-folic acid 800 mcg tablet () 1 tab PO DAILY 10/16/23 [History Confirmed 02/19/25] acetaminophen 500 mg capsule 500 mg PO QID PRN fever or pain #30 caps 10/20/23 [Rx Confirmed 02/19/25] ibuprofen 800 mg tablet 800 mg PO Q8H PRN pain #30 tabs 10/20/23 [Rx Confirmed 02/19/25] drospirenone 3 mg-ethinyl estradiol 0.03 mg tablet (Bernarda (28)) 1 tab PO QDAY #84 tabs 02/19/25 [Rx] Intake Visit Data Collection New Patient or Established: Established Patient (seen at [facility] within 3 years) Reason for Visit:: POST Consent obtained for Telemed Visit: No Seen by Clinical Staff ONLY (RN/MA): No Crm Solution Architect Required: No Do You Feel Safe at Home: Yes Authorities Contacted: N/A PCP or OBGYN visit in last 3 months: Yes Date of Last PCP or OBGYN visit: 01/29/25 Hx Now: No Are you currently on any form of Control: No Last menstrual period: 02/11/25 Pain Present Currently: No Pain Scale Used: Escobar-Alcantara/Numerical Pain scale:: 0 Smoking Status Smoking Status: Never smoker DIGITAL PRINTER OPERATOR: Past Medical History Past Medical History: No Hx Neurological Disorders, No Hx Cardiac Disorders, No Hx Cancer, No Hx Blood Disorders, No Hx Anemia, No Hx Gastrointestinal Disorders, No Hx Renal Disease, No Hx Diabetes Mellitus Type 1 and No Hx Diabetes Mellitus Type 2 Questionnaires Covid-19 Vaccine Questionnaire Has patient been vacinated for Covid-19 Have you been vacinated for Covid-19: Yes Social History Living Situation History Lives With: Family Housing: Apartment Tobacco History Smoking Status: Never smoker Second Hand Smoke Exposure: No Alcohol History Alcohol Intake: Never Domestic Abuse History Do You Feel Safe at Home: Yes Care OB Visit Log OB Flowsheet Initial Weight: Not Recorded Date <del>?</del> EGA Weight BP Alb Glu CTX Pres Fundal ht FHR Mov Dilation Station Effacement Hx Notes Visit Note 10/22/24 <del>?</del> 27w 5d 74.503 kg 106/70 106/70 absent 28 151 active discussed labs. next visit with teo 11/06, discuss precaution. continue PNV, fluids. TDAP NV, f/u in 3 week 11/12/24 <del>?</del> 30w 5d 76.714 kg 117/75 117/75 absent 30 156 active no complaints of PTL. reports good mvement. no leaking or bleeding. last visit with Dr Carvajal was 11/06. patient reports that MFM saw small amount of fluid around heart. next BPP with MFM 11/20, NST/GLO 11/26, per mfm start weekly nst/bpp. patient desire to have NST/BPP at [facility] due to distance. nst/bpp referal made no complaints of PTL. reports good mvement. no leaking or bleeding. last visit with Dr Carvajal was 11/06. patient reports that MFM saw small amount of fluid around heart. next BPP with MFM 11/20, NST/GLO 11/26, per mfm start weekly nst/bpp. patient desire to have NST/BPP at [facility] due to distance. nst/bpp referal made. declined TDAP. rtc obc 2 week 11/26/24 <del>?</del> 32w 5d 76.374 kg 110/67 absent 31 145 active f/u with perinate and NST/BPP today, patient transfered to Dr Carvajal for care. fetus with cardiac murmur and fluid aroud heart, improved to 3. good fm,no c/o PTL cymptoms. biweek nst/bpp sched. discuss ptl precaution, fkc bid. increase fluid,continue PNV. continue sched visits with perinatology HANG Calculator Estimated Delivery Date Method Current WG Current Estimate 01/16/25 Ultrasound #1 44w 6d Other Estimates 01/15/25 LMP (Certain) 45w 0d HPI Interval History: 24 yo for 6 week pp and BC start. vaginal delivery 01/08/25, baby girl. 6-12. bottle. patient delivered in [place] at 39 week, fetus had cardiac ring, cardiology referral pending. sibling adjusting, father involved. help at home. happy, no depression, no interval pp complaints. sex 2 week, with condom. wants to start pill. lmp 02/12 Was or delivery considered high risk: Yes Delivery type: vaginal (delivery in [place], fetus has cardiac anomaly) Was labor induced: no Gestational age at delivery (weeks): 39 Delivery date: 01/08/25 Delivering provider: [place] Delivery complications: No Is patient : No Is patient sexually active: Yes Contraception planned: pills Review of Systems Review of Systems ROS limited to current DIGITAL PRINTER OPERATOR complaints: Yes Exam Narrative Physical exam: Normal heart rate and rhythm. Lungs clear no wheezes. Abdomen is soft nontender. Uterus well involuted. Perineum is intact no lacerations. No swelling. Small lochia. Negative Homans' sign. 2+ DTRs. No edema no swelling. Breasts are soft General Limitations: no limitations General Appearance: alert, in no apparent distress, comfortable, cooperative, healthy appearing, well developed and well groomed Head Head exam: atraumatic, normocephalic and normal inspection Resp Respiratory exam: Present normal lung sounds bilaterally Card Cardiovascular exam: Present regular rate, normal rhythm and normal heart sounds Abdominal Abdominal exam: Present soft and normal bowel sounds Psych Psychiatric exam: Present normal affect and normal mood Office Procedures OB Clinic LOC & Office Proc's Nursing/Assessment Patient Status: Established Patient OB Clinic Nursing Assessment: Medication Reconciliation, Update PMH in EMR and Vital Signs OB Clinic Coordination of Care: Complex Care and Chronic Disease 1-5, Consent,records obtained, informed consent, Education Simp Pt/Fam and 4+ Authorizations needed Established Patient Charge Established Patient Point Assignment: 100 Post Follow-up Visit Post Follow up Visit: Yes Results Urine HCG Urine HCG Negative Last Edit by Marsha Bliss MA on 02/19/25 10:39 Assessment & Plan Diagnosis / Problem List (1) 6 weeks follow-up: Status: Acute (2) Oral contraceptive use: Status: Acute Plan bernarda x 12, start today. review method and side effect. start today. condom x 2 week. continue multi vitamin. pap in 2 year. discuss diet and exercise. ACHES and safe sex reviewed. rtc 1 year f/u Care Reviewed delivery summary and any complications: Yes Uterus involuted to: 3 below Perineal / incision healing noted: No Screened for depression: Yes Depression counseling provided: No Discussed family planning & contraception: Yes Contraception planned: pills Counseling on safe resumption of sexual activity: Yes Counseling on gradual excercise: Yes Discussed and concerns (describe), provided support: No Referred to apartment leasing specialist: No Counseled on good nutrition, hydration, and self care: Yes Reviewed vaccine status: No Chronic & current problems reconciled on problem list: Yes Infant care discussed; questions answered: feeding Follow up: routine/prn Additional counseling & anticipatory guidance provided: start bernarda today, condom x 2 week
== END 2025-02-19 10:41 | disposition home or self-care (01) ==
LOC: HODSOBC 09:59
PROVIDERS: Supervising Provider Advanced Practice Midwife; Visit Provider Advanced Practice Midwife
DX: Z39.2 Encounter for routine postpartum follow-up (principal); Z30.011 Encounter for initial prescription of contraceptive pills
CPT/HCPCS: Z1038